=== PATIENT | female | born 1950 | race African-American/Black ===

== ENCOUNTER 2018-04-06 11:51 | Emergency (ER) | payer MEDICAID ==
[~2018-04-06] VITALS: Ht 175.3 cm; Wt 90.9 kg
[~2018-04-06 11:51] MED LIST: ADVIL200 MG PO; ALEVE220 MG PO; COLACE100 MG PO; ELIQUIS2.5 MG PO; HYDROCODONE-APA1 TAB PO
[2018-04-06 11:57] VITALS: Ht 175.3 cm; Wt 90.9 kg
[2018-04-06] MEDS ORDERED: ALEVE220 MG PO (11:59)
[2018-04-06] MEDS ORDERED: ZANAFLEX4 MG PO (11:59)
[2018-04-06 14:51] VITALS: BP 154/90
== END 2018-04-06 14:51 | disposition home or self-care (01) ==
LOC: D.ER 11:51
DX: S61.213A Laceration without foreign body of left middle finger without damage to nail, initial encounter (principal); W26.8XXA Contact with other sharp object(s), not elsewhere classified, initial encounter; Y93.89 Activity, other specified; Y92.010 Kitchen of single-family (private) house as the place of occurrence of the external cause

== ENCOUNTER 2019-04-25 08:00 | Outpatient (CLI) | payer MEDICAID ==
[2018-04-06 11:57] VITALS: BMI 29.6
[~2019-04-25 08:00] MED LIST changes: +ZANAFLEX4 MG PO
== END 2019-04-25 23:59 | disposition home or self-care (01) ==
LOC: D.MAMMO 08:00
PROVIDERS: ATTEND Family Medicine
DX: Z12.31 Encounter for screening mammogram for malignant neoplasm of breast (principal)

== ENCOUNTER → 2019-06-17 18:06 | Outpatient (CLI) | payer MEDICARE ==
[2018-04-06 11:57] VITALS: BMI 29.6
== END | disposition home or self-care (01) ==
LOC: D.LABREF 18:06
PROVIDERS: ATTEND Urology
DX: R31.9 Hematuria, unspecified (principal)

== ENCOUNTER → 2019-07-01 18:02 | Outpatient (CLI) | payer MEDICARE ==
[2018-04-06 11:57] VITALS: BMI 29.6
== END | disposition home or self-care (01) ==
LOC: D.LABREF 18:02
PROVIDERS: ATTEND Urology
DX: N39.0 Urinary tract infection, site not specified (principal)

== ENCOUNTER → 2019-07-30 10:22 | Outpatient (CLI) | payer MEDICARE, MEDICAID ==
[2018-04-06 11:57] VITALS: BMI 29.6
== END | disposition home or self-care (01) ==
LOC: D.CT 10:22
PROVIDERS: ATTEND Urology
DX: R31.21 Asymptomatic microscopic hematuria (principal)

== ENCOUNTER 2019-08-16 08:00 | Outpatient (CLI) | payer MEDICARE, MEDICAID ==
[2018-04-06 11:57] VITALS: BMI 29.6
[2019-08-16] MEDS ORDERED: TRAVATAN Z2.5 ML EACH EYE (09:07)
[2019-08-16] MEDS ORDERED: TIMOPTIC 0.5 % O5 ML EACH EYE (09:07)
[2019-08-16 09:51] LABS: BASOPHILS 0.6 % (0-2); EOSINOPHILS 2.5 % (0-7); HEMATOCRIT 40.5 % (36.0-48.0); HEMOGLOBIN 12.9 g/dL (12-16); IMMATURE GRANULOCYTES 0.2 % (0-5); LYMPHOCYTES 43.1 % (15-50); MCHC 31.9 g/dL (31.0-37.0); MCV 84.9 fL (80.0-100.0); MEAN PLATELET VOLUME 10.1 fL (7.4-10.4); MONOCYTES 5.9 % (2-11); NEUTROPHILS 47.7 % (40-80); RBC 4.77 10x6/uL (4.00-5.40); RDW 14.8 % (11.5-14.5); WBC 4.9 10x3/uL (4.8-10.8)
[2019-08-16 09:53] LABS: CALC OSMOLALITY 283 mosm/kg (275-300); CALCIUM 9.2 mg/dL (8.5-10.1); CARBON DIOXIDE 27.6 mmol/L (21.0-32.0); CHLORIDE - SERUM 105 mmol/L (98-107); CREATININE - SERUM 0.8 mg/dL (0.6-1.3); GLUCOSE 105 mg/dL (74-106); SODIUM 142 mmol/L (136-145); UREA NITROGEN 16 mg/dL (7-18); eGFR NON AFRICAN AMERICAN 75 mL/min (90-120)
[2019-08-16 09:55] LABS: PLATELET COUNT 252 10x3/uL (130-400)
== END 2019-08-16 08:01 | disposition home or self-care (01) ==
LOC: D.PAN 08:00 → D.OPS 08-20 07:00 → D.PAN 08-20 07:00 → EDSTATUS 08-20 07:00
PROVIDERS: ATTEND Obstetrics & Gynecology
DX: N81.3 Complete uterovaginal prolapse (principal); N81.6 Rectocele

== ENCOUNTER 2020-12-14 21:52 | Emergency (ER) | payer MEDICARE, MEDICAID ==
[~2020-12-14] VITALS: Ht 175.3 cm; Wt 90.7 kg
[~2020-12-14 21:52] MED LIST changes: +TIMOPTIC 0.5 % O5 ML EACH EYE; +TRAVATAN Z2.5 ML EACH EYE
[2020-12-14 21:55] VITALS: Ht 175.3 cm; Wt 90.7 kg
[2020-12-14 22:29] LABS: APTT 26.5 SECONDS (22.8-39.4); INR 1.08 (0.85-1.17)
[2020-12-14 22:30] LABS: HEMATOCRIT 37.3 % (36.0-48.0); HEMOGLOBIN 12.2 g/dL (12-16); LYMPHOCYTE ABS# 3.37 10x3/uL (1.18-3.74); MCH 27.7 pg (26.0-34.0); MCHC 32.7 g/dL (31.0-37.0); MCV 84.6 fL (80.0-100.0); MEAN PLATELET VOLUME 10.2 fL (7.4-10.4); NEUTROPHIL ABS# 2.57 10x3/uL (1.56-6.13); PLATELET COUNT 250 10x3/uL (130-400); RBC 4.41 10x6/uL (4.00-5.40); RDW 14.5 % (11.5-14.5); WBC 6.4 10x3/uL (4.8-10.8)
[2020-12-14 22:31] LABS: CALC OSMOLALITY 285 mosm/kg (275-300); CALCIUM 9.1 mg/dL (8.5-10.1); CARBON DIOXIDE 22.2 mmol/L (21.0-32.0); CHLORIDE - SERUM 108 mmol/L (98-107); GLUCOSE 142 mg/dL (74-106); POTASSIUM - SERUM 3.4 mmol/L (3.5-5.1); SODIUM 142 mmol/L (136-145); UREA NITROGEN 16 mg/dL (7-18); eGFR NON AFRICAN AMERICAN 58 mL/min (90-120)
[2020-12-14 22:45] LABS: ALBUMIN 3.6 g/dL (3.4-5.0); ALKALINE PHOSPHATASE 74 U/L (30-120); ALT (SGPT) 38 U/L (10-68); BILIRUBIN - TOTAL 0.18 mg/dL (0.2-1.3); CKMB 2.8 U/L (0.0-3.6); CREATINE KINASE 391 UL (21-215); MAGNESIUM - SERUM 2.1 mg/dL (1.8-2.4); PROTEIN - SERUM 7.3 g/dL (6.4-8.2); TROPONIN-I 0.022 ng/mL (0.000-0.060)
[2020-12-14 22:51] LABS: EOSINOPHILS 1 % (0-7); LYMPHOCYTES 54 % (15-50); MONOCYTES 3 % (2-11); NEUTROPHILS 42 % (40-80); PLATELET ESTIMATE NORMAL
[2020-12-15] MEDS ORDERED: HYDROCODON-ACE1 EAC7 PO (00:52)
[2020-12-15] MEDS ORDERED: AUGMENTIN 875-11 TAB PO (00:52)
[2020-12-15 01:28] VITALS: BP 163/91
== END 2020-12-15 01:28 | disposition home or self-care (01) ==
LOC: D.ER 21:52
PROVIDERS: Family Medicine
DX: S00.83XA Contusion of other part of head, initial encounter (principal); K21.9 Gastro-esophageal reflux disease without esophagitis; Z91.81 History of falling; R03.0 Elevated blood-pressure reading, without diagnosis of hypertension; W19.XXXA Unspecified fall, initial encounter